=== PATIENT | male | born 1990 | race Two or more races ===

== ENCOUNTER 2023-10-01 12:07 | Emergency (ER) | payer MEDICAID ==
[~2023-10-01] VITALS: Ht 170.2 cm; Wt 90.9 kg
[2023-10-01 13:20] LABS: BASOPHILS % (AUTO) 0.6 % (0.0-2.0); EOSINOPHILS % (AUTO) 0.2 % (1.0-6.0); HEMATOCRIT 45.7 % (41-53); HEMOGLOBIN 15.7 g/dL (13.5-17.5); LYMPHOCYTES # (AUTO) 1.3 K/uL (1.0-4.8); LYMPHOCYTES % (AUTO) 16.8 % (22.0-44.0); MEAN CORPUSCULAR HEMOGLOBIN 29.9 pg (26.0-34.0); MEAN CORPUSCULAR HGB CONC 34.5 G/dL (31.0-37.0); MEAN CORPUSCULAR VOLUME 87 fL (80-100); MONOCYTES # (AUTO) 0.4 K/uL (0.1-1.0); MONOCYTES % (AUTO) 4.8 % (2.0-9.0); NEUTROPHILS # (AUTO) 5.9 K/uL (1.8-7.7); NEUTROPHILS % (AUTO) 77.6 % (40.0-70.0); PLATELET COUNT (AUTO) 217 K/uL (150-450); RED BLOOD CELL COUNT(AUTO) 5.27 MIL/uL (4.50-5.90); RED CELL DISTRIBUTION WIDTH 14.2 % (11.5-14.5); WHITE BLOOD COUNT (AUTO) 7.6 K/uL (4.5-11.0)
[2023-10-01 13:22] LABS: ANION GAP 9 mmol/L (8-16); CALCIUM, TOTAL 9.5 mg/dL (8.8-10.5); CARBON DIOXIDE 29 mmol/L (22-29); CHLORIDE 103 mmol/L (98-107); CREATININE 0.69 mg/dL (0.60-1.30); GLOMERULAR FILTR. RATE CALC > 60 mL/min (>60); GLUCOSE,RANDOM 152 mg/dL (70-110); POTASSIUM 4.3 mmol/L (3.5-5.1); SODIUM SERUM 140 mmol/L (136-145); UREA NITROGEN, BLOOD 14 mg/dL (7-18)
[2023-10-01 13:26] LABS: ALCOHOL, BLOOD (SERUM) < 3 mg/dL (0-10)
[2023-10-01 13:27] LABS: ALANINE AMINOTRANSFERASE 52 U/L (12-78); ALBUMIN 4.3 g/dL (3.4-5.0); ALKALINE PHOSPHATASE 132 U/L (46-116); ASPARTATE AMINOTRANSFERASE 29 U/L (15-37); BILIRUBIN,TOTAL 0.5 mg/dL (0.1-1.0)
[2023-10-01 13:29] LABS: TROPONIN I-HIGH SENSITIVITY 11 ng/L (<76)
[2023-10-01] MEDS ORDERED: AmLODIPine BESYLATE 5 MG TABLET PO ONE (14:00)
[2023-10-01] MEDS ORDERED: SODIUM CHLORIDE 0.9% 1,000 ML IV ONE (14:30)
[2023-10-01] MEDS ORDERED: METOCLOPRAMIDE HCL 5 MG/ML 2 ML VIAL IVP ONE (14:30)
[2023-10-01] MEDS ORDERED: DiphenhydrAMINE HCL 50 MG/ML VIAL IVP ONE (14:30)
[2023-10-01 17:43] LABS: PH,URINE DRUG SCREEN 6.5 (5.0-8.0)
[2023-10-01 17:59] LABS: ALCOHOL, URINE DRUG SCREEN NEGATIVE (NEGATIVE); AMPHET/METH SCREEN,URINE NEGATIVE (NEGATIVE); BARBITURATE SCREEN, URINE NEGATIVE (NEGATIVE); BENZODIAZEPINES SCREEN,URINE NEGATIVE (NEGATIVE); CANNABINOID SCREEN,URINE NEGATIVE (NEGATIVE); COCAINE SCREEN,URINE NEGATIVE (NEGATIVE); METHADONE SCREEN, URINE NEGATIVE (NEGATIVE); OPIATE SCREEN,URINE NEGATIVE (NEGATIVE); PHENCYCLIDINE SCREEN,URINE NEGATIVE (NEGATIVE)
[2023-10-01 18:21] VITALS: TEMP 98.1
[2023-10-01 18:31] VITALS: BP 109/78; PULSE 78; RESP 18
== END 2023-10-01 18:33 | disposition home or self-care (01) ==
LOC: EMS 12:10
DX: R51.9 Headache, unspecified (principal); I10 Essential (primary) hypertension
CPT/HCPCS: 70450; 80053; 80307; 84484; 85025; 93005; 96361; 96374; 96375; 99285; G0480; J1200; J2765; J7030; 36415-L1; 36415-TC